=== PATIENT | male | born 1965 | race Caucasian/White ===

== ENCOUNTER 2016-08-11 20:58 | Emergency (ER) | payer SELFPAY ==
--- NOTE | 2016-08-12 00:29 | ER Document Report ---
ED Psych Disorder / Suicide - General Mode of Arrival: Ambulatory Information source: Patient TRAVEL OUTSIDE OF THE [place] IN LAST 30 DAYS: No - HPI Onset: Other - see HPI notes Associated symptoms: Anxious, Depressed <AICHA TORRES - Last Filed: 08/12/16 01:23> <NATHALIELAUREN ANN - Last Filed: 08/12/16 05:01> - General Chief Complaint: Anxiety Stated Complaint: ANXIETY Time Seen by Provider: 08/12/16 00:07 Notes: Patient is a 50-year-old male presenting to the emergency department for anxiety and depression. Patient states that he is homeless and currently does not have a job. Patient states he does have some alcohol today and has drank in the past but denies any belief that he is in alcohol withdrawal. Patient states he cannot stop shaking and that today he had some anxiety. More patient denies any cough, fever, suicidal ideation, homicidal ideation, or other symptoms. Patient states that both he and his were homeless but she left him for another man and he has not seen her for 2-3 years. Patient does not know if any particular thing or incident has triggered his anxiety or depression today. Patient states that he would like to find a home and a job but he is having a difficult time doing so. Patient has a history of suicidal ideation with an attempt and was evaluated in this emergency department for such. Patient denies any suicidal ideation today but states he thinks he needs to talk to the mental health team in the morning. (AICHA TORRES) - Related Data Allergies/Adverse Reactions: No Known Allergies Allergy (Verified 10/12/14 20:33) Past Medical History - General Information source: Patient - Social History Smoking Status: Current Every Day Smoker Cigarette use (# per day): Yes - 1 ppd Family History: None Patient has suicidal ideation: No Patient has homicidal ideation: No - Past Medical History Cardiac Medical History: Reports: Hx Hypertension Past Surgical History: Reports: Hx Orthopedic Surgery, Hx Vascular Surgery - Immunizations Hx Diphtheria, Pertussis, Tetanus Vaccination: Yes <AICHA TORRES - Last Filed: 08/12/16 01:23> Review of Systems - Review of Systems Constitutional: No symptoms reported EENT: No symptoms reported Cardiovascular: No symptoms reported Respiratory: No symptoms reported Gastrointestinal: No symptoms reported Genitourinary: No symptoms reported Male Genitourinary: No symptoms reported Musculoskeletal: No symptoms reported Skin: No symptoms reported Hematologic/Lymphatic: No symptoms reported Neurological/Psychological: See HPI, Depression, Anxiety -: Yes All other systems reviewed and negative <AICHA TORRES - Last Filed: 08/12/16 01:23> Physical Exam - Vital signs Interpretation: Normal - General General appearance: Alert, Other - patient is tremulous In distress: Mild - HEENT Head: Normocephalic, Atraumatic Eyes: Normal Pupils: PERRL Mucous membranes: Moist - Respiratory Respiratory status: No respiratory distress Chest status: Nontender Breath sounds: Normal Chest palpation: Normal - Cardiovascular Rhythm: Regular Heart sounds: Normal auscultation Murmur: No - Abdominal Inspection: Normal Distension: No distension Bowel sounds: Normal Tenderness: Nontender Organomegaly: No organomegaly - Back Back: Normal, Nontender - Extremities General upper extremity: Normal inspection, Normal ROM, Normal strength General lower extremity: Normal inspection, Normal ROM, Normal strength - Neurological Neuro grossly intact: Yes Cognition: Normal Orientation: AAOx4 Combes Coma Scale Eye Opening: Spontaneous Dylan Coma Scale Verbal: Oriented Dylan Coma Scale Motor: Obeys Commands Combes Coma Scale Total: 15 Speech: Normal - Psychological Associated symptoms: Anxious, Depressed - Skin Skin Temperature: Warm Skin Moisture: Dry <AICHA TORRES - Last Filed: 08/12/16 01:23> <LAUREN ZELAYA - Last Filed: 08/12/16 05:01> - Vital signs Vitals: Temp Pulse Resp BP Pulse Ox 97.1 F 91 26 H 145/88 H 99 08/11/16 21:13 08/11/16 21:13 08/11/16 21:13 08/11/16 21:13 08/11/16 21:13 Course <AICHA TORRES - Last Filed: 08/12/16 01:23> - Laboratory Result Diagrams: 08/12/16 01:15 08/12/16 01:15 <LAUREN ZELAYA - Last Filed: 08/12/16 05:01> - Re-evaluation Re-evalutation: 08/12/16 Patient is a 50-year-old male who comes in complaining of severe anxiety and recent depression. Patient states that he is homeless. He has been homeless for a while. His left him recently. Patient states that everything caught up to him today. Patient states that he has been suicidal with an attempt in the past. He does not want to hurt himself currently but feels that he needs help. Patient will be held for evaluation by mental health and also social work. Blood work within normal limits. No evidence for any medical instability at this time. Patient is resting comfortably currently and is agreeable to staying. If he changes his mind and would like to leave, that is his decision. (LAUREN ZELAYA) - Vital Signs Vital signs: Temp Pulse Resp BP Pulse Ox 97.2 F 88 25 H 136/82 H 100 08/12/16 01:42 08/12/16 01:42 08/12/16 01:42 08/12/16 01:42 08/12/16 01:42 - Laboratory Laboratory results interpreted by me: 08/12/16 08/12/16 08/12/16 01:15 01:15 01:18 Plt Count 147 L Sodium 131.2 L Chloride 97 L Carbon Dioxide 21 L Direct Bilirubin 0.5 H Urine Ketones TRACE H Salicylates < 1.0 L Acetaminophen < 10 L Discharge <AICHA TORRES - Last Filed: 08/12/16 01:23> <LAUREN ZELAYA - Last Filed: 08/12/16 05:01> - Discharge Clinical Impression: Anxiety, Homeless Depression Qualifiers: Depression Type: unspecified Qualified Code(s): F32.9 - Major depressive disorder, single episode, unspecified Condition: Stable Disposition: OTHER Instructions: Anxiety (OM), Depression (OM) Scribe Attestation: 08/12/16 05:01 I personally performed the services described in the documentation, reviewed and edited the documentation which was dictated to the scribe in my presence, and it accurately records my words and actions. (LAUREN ZELAYA) Scribe Documentation - Scribe Written by Bharati:: Bharati Gonzalez, 08/12/16 1:30 acting as scribe for :: Nathalie <AICHA TORRES - Last Filed: 08/12/16 01:23>
[2016-08-12] MEDS ORDERED: LORAZEPAM 1 MG TABLET PO ONE ×2 (00:30→05:32)
[2016-08-12 01:30] LABS: ABSOLUTE BASOPHILS # (AUTO) 0.1 10^3/uL (0.0-0.2); ABSOLUTE LYMPHOCYTES (AUTO) 1.3 10^3/uL (0.5-4.7); ABSOLUTE MONOCYTES (AUTO) 0.4 10^3/uL (0.1-1.4); BASOPHILS % (AUTO) 0.9 % (0-2); EOSINOPHILS % (AUTO) 0.5 % (0-6); HEMATOCRIT 42.3 % (37.9-51.0); HEMOGLOBIN 14.6 g/dL (13.5-17.0); HGB HCT DIFFERENCE 1.5; LYMPHOCYTES % (AUTO) 19.4 % (13-45); MEAN CORPUSCULAR HEMOGLOBIN 32.9 pg (27.0-33.4); MEAN CORPUSCULAR HGB CONC 34.6 g/dL (32.0-36.0); MEAN CORPUSCULAR VOLUME 95 fl (80-97); RED BLOOD COUNT 4.44 10^6/uL (4.35-5.55); RED CELL DISTRIBUTION WIDTH 12.8 % (11.5-14.0); SEGMENTED NEUTROPHILS % (AUTO) 73.2 % (42-78); WHITE BLOOD COUNT 6.9 10^3/uL (4.0-10.5)
[2016-08-12 01:34] LABS: APPEARANCE,URINE CLEAR; BILIRUBIN,URINE NEGATIVE (NEGATIVE); GLUCOSE, URINE NEGATIVE (NEGATIVE); KETONES,URINE TRACE mg/dL (NEGATIVE); LEUKOCYTE ESTERASE,URINE NEGATIVE (NEGATIVE); NITRITE,URINE NEGATIVE (NEGATIVE); PROTEIN,URINE NEGATIVE (NEGATIVE); URINE SPECIFIC GRAVITY 1.001; UROBILINOGEN,URINE NEGATIVE mg/dL (<2.0)
[2016-08-12 01:43] LABS: ALANINE AMINOTRANSFERASE 51 U/L (21-72); ALBUMIN 4.2 g/dL (3.5-5.0); ALKALINE PHOSPHATASE 79 U/L (38-126); ANION GAP 13 (5-19); ASPARTATE AMINO TRANSFERASE 46 U/L (17-59); BILIRUBIN,DIRECT 0.5 mg/dL (0.0-0.4); BILIRUBIN,TOTAL 1.2 mg/dL (0.2-1.3); BLOOD UREA NITROGEN 7 mg/dL (7-20); CALCIUM 9.1 mg/dL (8.4-10.2); CARBON DIOXIDE 21 mmol/L (22-30); CHLORIDE 97 mmol/L (98-107); CREATININE RESULT 0.66 mg/dL (0.52-1.25); GLUCOSE 85 mg/dL (75-110); SODIUM 131.2 mmol/L (137-145); TOTAL PROTEIN 6.8 g/dL (6.3-8.2)
[2016-08-12 01:45] LABS: ALCOHOL < 10 mg/dL (NONE DETECTED); POTASSIUM 4.1 mmol/L (3.6-5.0)
[2016-08-12 02:12] LABS: URINE BARBITURATES SCREEN NEGATIVE; URINE METHADONE SCREEN NEGATIVE; URINE OPIATES LOW NEGATIVE; URINE PHENCYCLIDINE SCREEN NEGATIVE
[2016-08-12] MEDS ORDERED: NICOTINE 21 MG/24 HR PATCH.TD24 TD ONE (06:09)
--- NOTE | 2016-08-12 07:13 | EKG REPORT ---
SEVERITY:- ABNORMAL ECG - SINUS RHYTHM LEFT ATRIAL ABNORMALITY PROBABLE ANTERIOR INFARCT, ACUTE : Confirmed by: Nieves Painter MD 12-Aug-2016 07:12:57
[2016-08-12 08:28] VITALS: BP 142/90
--- NOTE | 2016-08-12 09:44 | PSYCHOLOGICAL NOTE ---
Psych Note - Psych Note Psych Note: Patient is a 50-year-old male presenting to the emergency department for anxiety and depression. Patient states that he is homeless and currently does not have a job. Patient states he does have some alcohol today and has drank in the past but denies any belief that he is in alcohol withdrawal. Patient states he cannot stop shaking and that today he had some anxiety. More patient denies any cough, fever, suicidal ideation, homicidal ideation, or other symptoms. Patient states that both he and his were homeless but she left him for another man and he has not seen her for 2-3 years. Patient does not know if any particular thing or incident has triggered his anxiety or depression today. Patient states that he would like to find a home and a job but he is having a difficult time doing so. Patient has a history of suicidal ideation with an attempt and was evaluated in this emergency department for such. Patient denies any suicidal ideation today but states he thinks he needs to talk to the mental health team in the morning. Patient states he is homeless and has no job. 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 He disclosed "everything feels tight" in his chest; denies this has every happened previously. He disclosed that his hands started shaking "uncontrollable" which prompted him to come to [facility]. He stated that the medication he has been receiving seems to help with the shaking but makes him dizzy and nauseous. Patient state he does not want to hurt himself but he is feeling hopeless and does not know what to do. 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 He disclosed this made him depressed because he was hoping to go to [employer] school. He disclosed "I just don't know what to do." Patient denies history of substance abuse or mental health issues. Patient is alert and orientated to person, place, time and circumstance. Mood is dysphoric with tearful affect. Patient denies suicidal and homicidal ideation but discloses despondency. Patient denies auditory and visual hallucinations; patient is not demonstrating behaviours that are congruent with responding to internal stimuli (i.e. good eye contact, organized thought processes). No delusions are noted. Thought processes are organized and linear. Thought content is bogged down/ overwhelmed and unable to problem solve. Eye contact was well maintained. attention and concentration are good. Insight, judgment and impulse control are poor. 311 (F32.9) Unspecified depressive disorder V62.29 (Z56.9) Other problems related to employment V60.0 (Z59.0) Homelessness Impression/ plan: Patient is psychiatrically clear for discharge. Patient does not meet IVC criteria per [place] 122C. Patient is recommended to follow up with outpatient services for mental health. Clinician provided local resource lists to include shelters, food [place], and day-employment organizations, and [facility] [employer] contact information. Dr. Garcia was consulted on the care and management of this patient; attending physician is in agreement with recommendations and disposition.
== END 2016-08-12 11:40 | disposition home or self-care (01) ==
LOC: ER 20:58
DX: F41.9 Anxiety disorder, unspecified (principal); F32.9 Major depressive disorder, single episode, unspecified; I10 Essential (primary) hypertension; R25.1 Tremor, unspecified; F17.210 Nicotine dependence, cigarettes, uncomplicated; Z56.0 Unemployment, unspecified; Z59.0 Homelessness; Z91.5 Personal history of self-harm
CPT/HCPCS: 36415; 80053; 80307; 81001; 84484; 85025; 93005; 93010; 99284